=== PATIENT | male | born 1995 | race Caucasian/White ===

== ENCOUNTER 2022-12-26 18:32 | Inpatient (IN) | payer MEDICAID, SELFPAY ==
--- NOTE | ~2022-12-26 | CT_ITS ---
EXAMINATION: CT ABDOMEN AND PELVIS WITHOUT CONTRAST CLINICAL INFORMATION: Leukocytosis, right lower quadrant. COMPARISON: None available. TECHNIQUE: Multidetector volumetric imaging was performed from the superior aspect of the liver through the pubic symphysis. Sagittal and coronal reformatted images were obtained on the technologist's workstation. Lack of intravenous and oral contrast limits visceral evaluation. This CT examination was performed using dose optimization techniques as appropriate, variously including the following: *Automated exposure control *Adjustment of mA and/or kV according to patient size (this includes techniques or standardized protocols for targeted exams where dose is matched to indication/reason for exam; i.e. extremities or head) *Use of iterative reconstruction technique DLP: 385 mGy-cm FINDINGS: LUNG BASES: The visualized lung bases are unremarkable. LIVER, GALLBLADDER, AND BILIARY TREE: Unremarkable. PANCREAS: Unremarkable. SPLEEN: Unremarkable. ADRENAL GLANDS: Unremarkable. KIDNEYS AND URETERS: The kidneys are normal in size, shape, and attenuation. No hydronephrosis, hydroureter, or calculi seen. No perinephric stranding. BLADDER: Unremarkable. GASTROINTESTINAL TRACT: The stomach and small bowel unremarkable. There is dilatation of the distal appendix measuring up to 1.1 cm in greatest diameter (image 44, series 4) with mild mural thickening and mild adjacent infiltrative changes. An appendicolith is seen more proximally measuring 1.0 cm (image 33, series 4). No evidence for perforation or abscess formation. The base of the cecum and remainder of the large bowel are unremarkable. ABDOMINAL WALL: No significant hernia is appreciated. LYMPH NODES: No lymphadenopathy. VASCULAR: Unremarkable. PELVIC VISCERA: Unremarkable. OSSEOUS STRUCTURES: Transitional L5-S1 with sacralization of L5 and a rudimentary disc at L5-S1. Mild grade 1 retrolisthesis of L4 over L5. No acute/suspicious abnormality. CT/CT abdomen pelvis wo IV con IMPRESSION: 1. Evidence for mild acute appendicitis with possible obstruction from a prominent appendicolith. No evidence for perforation or abscess formation. Digital consultation is recommended.
[2022-12-26 18:59] VITALS: BP 101/72; PULSE 71; RESP 18; TEMP 36.6; O2SAT 100; BMI 23.4
--- NOTE | 2022-12-26 19:01 | ED.GENADULT ---
HPI - General Adult General Chief complaint: Nausea/Vomiting/Diarrhea Stated complaint: abd pain Time Seen by Provider: 12/26/22 22:08 Source: patient and family (Father) Mode of arrival: ambulatory Limitations: no limitations History of Present Illness HPI narrative: 27-year-old male came in for evaluation of abdominal pain, nausea, vomiting, nonbloody watery diarrhea. Patient's symptoms started since this morning after he woke up from the sleep, pain has been constant since this morning, stated that he eats pizza last night from a restaurant no other sick contacts, no recent travel, no recent use of antibiotic variant patient started with severe lower abdominal pain followed by nausea and vomiting, and nonbloody watery diarrhea. No history of intra-abdominal surgeries in the past. Related Data Previous Rx's Medication Instructions Recorded cefuroxime axetil 500 mg tablet 500 mg PO Q12H 20 days #28 tabs 12/27/22 Allergies Allergy/AdvReac Type Severity Reaction Status Date / Time No Known Allergies Allergy Unverified 04/10/20 16:33 Review of Systems Review of Systems: All other systems are reviewed and are negative Constitutional: Reports as per HPI and Reports no additional constitutional complaints Eyes: Reports as per HPI and Reports no additional eye complaints Reports system reviewed and no additional complaints, except as documented Cardiovascular: Reports as per HPI and Reports no additional cardiovascular complaints Respiratory: Reports as per HPI and Reports no additional respiratory complaints Gastrointestinal: Reports as per HPI and Reports no additional gastrointestinal complaints Genitourinary: Reports no additional female genitourinary complaints Musculoskeletal: Reports no additional musculoskeletal complaints Skin/Breast: Reports system reviewed and no additional complaints, except as docu Psychiatric: Reports no additional psychiatric complaints Endocrine: Reports no additional endocrine complaints Hematologic/Lymphatic: Reports no additional hematologic/lymphatic complaints Allergic/Immunologic: Reports no additional allergic/immunologic complaints Reports system reviewed and no additional complaints, except as documented and Reports Abnormal speech present [facility] Social History Social History Household Members: Other Household Members Other:: self Housing: House Do you presently have visiting nurse or other home services: No Alcohol intake: never Patient Tobacco Use Status: Current someday Tobacco user Tobacco use type: Cigarette Smoked in Last 30 Days: Yes Frequency of e-Cigarette/Vaping Use: once a month Patient Interested in Nicotine Replacement: No Patient Given Instructions on How to Stop Smoking: No Second Hand Smoke Exposure: No Use of substances other than those prescribed or required for medical reasons: Yes Substance Use Type: Marijuana Substance Use Frequency: Occasionally Currently Displaying Signs/Symptoms of Drug Intoxication Withdrawal: No Any prior treatment program specific to substance use: No Have you been hit, kicked, punched, or otherwise hurt by someone within the past year? If so, by whom?: No Do you feel safe in your current relationship?: No Is there a partner from a previous relationship who is making you feel unsafe now?: No Are you made to feel afraid or neglected: No Advance Directives: No Advance Directives Information Provided: No Do you have thoughts of harming others: None Do you have a plan to hurt others: No Plan Recently lost weight without trying: No How much weight loss: Not applicable Eating poorly because of decreased appetite: No Nutrition screen score: 0 Nutrition Risks: No Nutritional Risk Poor oral hygiene: No service: No Current occupational status: employed Physical Exam ED Vital Signs: Vital Signs - 24 hr 12/26/22 18:59 12/26/22 21:28 12/26/22 21:42 Temperature 97.9 F 98.0 F Pulse Rate 71 112 H 113 H Respiratory Rate 18 22 H 16 Blood Pressure 101/72 119/62 120/61 Pulse Oximetry 100 100 100 Oxygen Delivery Method Room Air Room Air Room Air 12/26/22 22:00 Temperature Pulse Rate 110 H Respiratory Rate 12 Blood Pressure 112/59 L Pulse Oximetry 98 Oxygen Delivery Method Room Air BMI result Body Mass Index 23.4 Vital signs have been reviewed as appeared to be correct. Blood pressure normal. Heart rate normal. Respiration rate normal. Temperature normal. Oxygen saturation normal. Appearance: Alert. Oriented X3. No acute distress. Head: Normal external exam. Normocephalic. Atraumatic. No Oden signs noted. No raccoon eyes noted Eyes: PERRLA. EOMI. Conjunctiva and sclera normal. Eyelids normal. ENT: TM's Normal. Pharynx normal. Uvula midline. Moist mucous membranes. No trismus noted. No drooling noted. No muffled voice noted. Neck: Normal inspection. Neck supple. FROM. No adenopathy. Thyroid Normal. No meningeal signs. No neck mass noted. CVS: Normal heart rate and rhythm. Heart sound normal. No murmurs noted. Pulses normal throughout. Respiratory: No respiratory distress. Painless inspiration. Breath sounds normal. No wheezes/rales/rhonchi noted. Chest nontender. No accessory muscle usage noted or decreased air movement noted. Abdomen: Soft well bilateral lower extremities tenderness, no rebound tenderness, no guarding. Bowel sounds normal in all 4 quadrants. No distention noted. No organomegaly noted. No visible injury noted. Back: No CVA tenderness. Full range of motion noted. Skin: Skin warm and dry. Normal skin color. Normal skin turgor. No rashes/lesions/lacerations noted. Extremities: No lower extremity edema. Extremities exhibit normal range of motion. Extremities nontender. Neuro: Oriented X 3. Cranial nerve exam: II-XII are grossly intact No motor deficit. No sensory deficit. Reflexes normal. Course Course Course Narrative: RME: 27 yold male presents to the ED for abdominal pain, nausea, vomitting, and diarrhea since yesterday. labs, SARS, and UA ordered Reevaluation(s) Reevaluation #1: Acute appendicitis case discussed with Dr. Tena will keep the patient NPO. Time: 23:29 Reevaluation #2: Patient now diagnosed with acute appendicitis and meet criteria for SIRS by tachycardia and leukocytosis, blood cultures/lactic acid were ordered, will continue IV fluid hydration and IV Zosyn. Time: 23:43 Medications Administered Discontinued Medications Generic Name Dose Route Start Last Admin Trade Name Freq PRN Reason Stop Dose Admin Docusate Sodium 200 mg 12/27/22 09:00 12/27/22 10:00 Docusate Sodium 100 Mg Capsule PO Not Given BID [facility] Famotidine 20 mg 12/26/22 22:16 12/26/22 22:56 Famotidine/Pf 20 Mg/2 Ml Vial IVPUSH 12/26/22 22:17 20 mg ONCE ONE Administration Hydromorphone HCl 0.25 mg 12/26/22 23:50 12/27/22 00:43 Hydromorphone Hcl 0.5 Mg/0.5 Ml Syringe IVPUSH 0.25 mg Q2H PRN Administration Pain, Moderate(Pain Scale 4-6) Protocol Sodium Chloride 1,000 mls @ 999 mls/hr 12/26/22 22:16 12/26/22 23:16 Ns IV 12/26/22 23:16 Infused .Q1H1M ONE Infusion Sodium Chloride 1,000 mls @ 999 mls/hr 12/26/22 23:42 12/27/22 01:44 Ns IV 12/27/22 00:42 Infused .Q1H1M ONE Infusion Piperacillin Sod/Tazobactam 50 mls @ 100 mls/hr 12/26/22 23:42 12/27/22 00:42 Sod 3.375 gm/ Sodium Chloride IV 12/27/22 00:11 Infused ONCE ONE Infusion Lactated Ringer's 1,000 mls @ 100 mls/hr 12/26/22 23:45 12/27/22 06:50 Lr IVCONT 0 mls/hr .Q10H RENALDO Infusion Acetaminophen 1,000 mg in 100 mls @ 400 mls/hr 12/26/22 23:45 12/27/22 08:47 Ofirmev IV 12/27/22 17:59 Not Given Q6H RENALDO Acetaminophen 1,000 mg in 100 mls @ 400 mls/hr 12/27/22 02:34 12/27/22 08:47 Ofirmev IV 12/27/22 02:48 Infused ONCE ONE Infusion Piperacillin Sod/Tazobactam 50 mls @ 100 mls/hr 12/27/22 06:00 12/27/22 06:50 Sod 3.375 gm/ Sodium Chloride IV 0 mls/hr Q6H RENALDO Infusion Ketorolac Tromethamine 30 mg 12/27/22 02:34 12/27/22 04:43 Ketorolac Tromethamine 30 Mg/Ml Vial IVPUSH 12/27/22 02:35 30 mg ONCE ONE Administration Morphine Sulfate 1 mg 12/26/22 22:16 12/26/22 22:56 Morphine Sulfate 2 Mg/Ml Cartridge IVPUSH 12/26/22 22:17 1 mg ONCE ONE Administration Protocol Ondansetron HCl 4 mg 12/26/22 22:16 12/26/22 22:56 Ondansetron Hcl 4 Mg/2 Ml Vial IVPUSH 12/26/22 22:17 4 mg ONCE ONE Administration Ondansetron HCl 4 mg 12/26/22 23:50 12/27/22 00:43 Ondansetron Hcl 4 Mg/2 Ml Vial IVPUSH 4 mg Q6H PRN Administration Nausea and Vomiting Medical Decision Making Differential Diagnosis Differential Diagnoses: The differential diagnosis associated with the presentation includes (Acute appendicitis, pancreatitis, colitis, diverticulitis, electrolyte abnormalities, severe anemia.) Admission/Observation Consideration of admission/observation: Escalation of care including admission/observation considered Consult Healthcare Provider Management of the patient was discussed with: [employer] Operator (Dr. Fairbanks) Lab Data MDM Lab Attestation statement: I reviewed the patient's lab results. 12/26/22 19:11 12/26/22 19:11 Labs: Lab Results 12/26/22 12/26/22 12/26/22 Range/Units 19:11 19:11 19:11 WBC 16.6 H (4.8-10.8) X10*3/uL RBC 5.35 (4.60-5.80) X10*6/uL Hgb 16.2 (14.0-18.0) g/dl Hct 46.0 (42.0-52.0) % MCV 86.0 (80.0-98.0) fL MCH 30.3 (27.0-33.0) pg MCHC 35.2 (31.0-36.0) g/dl RDW 11.9 (11.0-16.0) % Plt Count 216 (160-400) X10*3/uL MPV 10.6 (9.4-12.4) fL Immature Gran % (Auto) 0.3 (0.0-0.4) % Neut % (Auto) 90.4 H (45-73) % Lymph % (Auto) 4.1 L (20-40) % [place] % (Auto) 5.0 (2-11) % Eos % (Auto) 0.0 (0-4) % Baso % (Auto) 0.2 (0-2) % Lymph # (Auto) 0.7 L (1.2-4.9) X10*3/uL [place] # (Auto) 0.8 (0.1-1.2) X10*3/uL Eos # (Auto) 0.0 (0.0-0.4) X10*3/uL Baso # (Auto) 0.0 (0.0-0.2) X10*3/uL Abs Immat Gran (auto) 0.05 H (0.00-0.03) X10*3/uL Absolute Neuts (auto) 15.0 H (2.0-8.3) x10*3/uL Absolute Nucleated RBC 0.000 (0.0-0.012) X10*3/uL Nucleated RBC % (auto) 0.0 (0.0-0.2) /100WBC Smear Tech's Comments VERIFIED Sodium 140 (135-145) mmol/L Potassium 3.7 (3.3-5.1) mmol/L Chloride 103 (96-108) mmol/L Carbon Dioxide 23 (22-29) mmol/L Anion Gap 18 (12-20) BUN 17 H (9-16) mg/dL Creatinine 0.87 (0.5-1.4) mg/dL Estim Creat Clear Calc 120.2 Estimated GFR > 60 Random Glucose 128 H (60-115) mg/dL Calcium 10.5 H (8.4-10.2) mg/dL Total Bilirubin 1.5 H (0.0-1.0) mg/dL AST 22 (5-37) U/L ALT 42 H (0-40) U/L Alkaline Phosphatase 73 (39-117) U/L Total Protein 8.0 (6.5-8.0) g/dL Albumin 5.0 (3.5-5.0) g/dL Lipase 13 (8-78) U/L Urine Color Urine Appearance Urine pH (5.0-9.0) Ur Specific [place] (1.005-1.025) Urine Protein (Neg-Trace) mg/dL Urine Glucose (UA) (Negative) mg/dL Urine Ketones (Negative) mg/dL Urine Blood (Negative) Urine Nitrite (Negative) Ur Leukocyte Esterase (Negative) Urine RBC (0-2) /HPF Urine WBC (0-5) /HPF Ur Squamous Epith Cells (0-2) /HPF Urine Bacteria (None Seen) Hyaline Casts (0-2) /LPF Influenza Type A (PCR) NEGATIVE (Negative) Influenza Type B (PCR) NEGATIVE (Negative) RSV RNA Qual (PCR) NEGATIVE (Negative) SARS-CoV-2 RNA (RT-PCR) NEGATIVE (Negative) 12/26/22 Range/Units 19:11 WBC (4.8-10.8) X10*3/uL RBC (4.60-5.80) X10*6/uL Hgb (14.0-18.0) g/dl Hct (42.0-52.0) % MCV (80.0-98.0) fL MCH (27.0-33.0) pg MCHC (31.0-36.0) g/dl RDW (11.0-16.0) % Plt Count (160-400) X10*3/uL MPV (9.4-12.4) fL Immature Gran % (Auto) (0.0-0.4) % Neut % (Auto) (45-73) % Lymph % (Auto) (20-40) % [place] % (Auto) (2-11) % Eos % (Auto) (0-4) % Baso % (Auto) (0-2) % Lymph # (Auto) (1.2-4.9) X10*3/uL [place] # (Auto) (0.1-1.2) X10*3/uL Eos # (Auto) (0.0-0.4) X10*3/uL Baso # (Auto) (0.0-0.2) X10*3/uL Abs Immat Gran (auto) (0.00-0.03) X10*3/uL Absolute Neuts (auto) (2.0-8.3) x10*3/uL Absolute Nucleated RBC (0.0-0.012) X10*3/uL Nucleated RBC % (auto) (0.0-0.2) /100WBC Smear Tech's Comments Sodium (135-145) mmol/L Potassium (3.3-5.1) mmol/L Chloride (96-108) mmol/L Carbon Dioxide (22-29) mmol/L Anion Gap (12-20) BUN (9-16) mg/dL Creatinine (0.5-1.4) mg/dL Estim Creat Clear Calc Estimated GFR Random Glucose (60-115) mg/dL Calcium (8.4-10.2) mg/dL Total Bilirubin (0.0-1.0) mg/dL AST (5-37) U/L ALT (0-40) U/L Alkaline Phosphatase (39-117) U/L Total Protein (6.5-8.0) g/dL Albumin (3.5-5.0) g/dL Lipase (8-78) U/L Urine Color Yellow Urine Appearance Cloudy Urine pH >= 9.0 (5.0-9.0) Ur Specific [place] >= 1.030 H (1.005-1.025) Urine Protein 100 (2+) H (Neg-Trace) mg/dL Urine Glucose (UA) Negative (Negative) mg/dL Urine Ketones 15 (Negative) mg/dL Urine Blood Negative (Negative) Urine Nitrite Negative (Negative) Ur Leukocyte Esterase Negative (Negative) Urine RBC 0-2 (0-2) /HPF Urine WBC 0-5 (0-5) /HPF Ur Squamous Epith Cells 0-2 (0-2) /HPF Urine Bacteria None Seen (None Seen) Hyaline Casts 0-2 (0-2) /LPF Influenza Type A (PCR) (Negative) Influenza Type B (PCR) (Negative) RSV RNA Qual (PCR) (Negative) SARS-CoV-2 RNA (RT-PCR) (Negative) Independent Interpretation I performed an independent interpretation of an: CT Scan (abd and pelvis: Acute appendicitis) Radiology Impression Discussion of test interpretation with radiology: I have reviewed the radiologist's reading. Discharge Plan Discharge Clinical Impression: Acute appendicitis Patient Disposition: Admitted As Inpatient Interventions: Admission Worksheet (ED) Last Done: 12/27/22 03:29 Discharge Date/Time: 12/27/22 03:18
[2022-12-26 19:25] LABS: Basophils Percent Auto 0.2 % (0-2); Hemoglobin 16.2 g/dl (14.0-18.0); Imm Gran Abs Auto 0.05 X10*3/uL (0.00-0.03); Imm Gran Pct Auto 0.3 % (0.0-0.4); Lymphocytes Absolute Auto 0.7 X10*3/uL (1.2-4.9); Lymphocytes Percent Auto 4.1 % (20-40); MANUAL DIFF FLAG SCAN; Mean Corpuscular HGB Conc 35.2 g/dl (31.0-36.0); Mean Corpuscular Hemoglobin 30.3 pg (27.0-33.0); Mean Platelet Volume 10.6 fL (9.4-12.4); Monocytes Absolute Auto 0.8 X10*3/uL (0.1-1.2); Neutrophils Percent Auto 90.4 % (45-73); Platelet Count 216 X10*3/uL (160-400); Red Blood Count 5.35 X10*6/uL (4.60-5.80); Red Cell Distribution Width 11.9 % (11.0-16.0); SCAN SMEAR FLAG 1; White Blood Count 16.6 X10*3/uL (4.8-10.8)
[2022-12-26 19:26] LABS: Appearance Urine Cloudy; Color Urine Yellow; Glucose Urine UA Negative (Negative); Leukocyte Esterase Urine Negative (Negative); Nitrite Urine Negative (Negative); PH >= 9.0 (5.0-9.0); Specific Gravity - Urine >= 1.030 (1.005-1.025); UMIC TRIGGER UACC YES; Urine Blood Negative (Negative); Urine Ketones 15 mg/dL (Negative); Urine Protein 100 (2+) mg/dL (Neg-Trace)
[2022-12-26 19:29] LABS: Bacteria Urine None Seen (None Seen); Hyaline Casts Urine 0-2 /LPF (0-2); RBC Urine 0-2 /HPF (0-2); Squamous Epithelial Cell Urine 0-2 /HPF (0-2); WBC Urine 0-5 /HPF (0-5)
[2022-12-26 19:45] LABS: SLIDE REVIEW VERIFIED
[2022-12-26 19:46] LABS: Alanine Aminotransferase 42 U/L (0-40); Alkaline Phosphatase 73 U/L (39-117); Anion Gap 18 (12-20); Aspartate Amino Transferase 22 U/L (5-37); Bilirubin Total 1.5 mg/dL (0.0-1.0); Blood Urea Nitrogen 17 mg/dL (9-16); Calcium 10.5 mg/dL (8.4-10.2); Carbon Dioxide 23 mmol/L (22-29); Chloride 103 mmol/L (96-108); Creatinine Clr Calc Pharmacy 120.2; Estimated Glomerular Filt Rate > 60; Glucose Random 128 mg/dL (60-115); Lipase 13 U/L (8-78); Potassium 3.7 mmol/L (3.3-5.1); Sodium 140 mmol/L (135-145)
[2022-12-26 20:08] LABS: Influenza A PCR NEGATIVE (Negative); Influenza B PCR NEGATIVE (Negative); Resp Syncy Virus RNA Qual PCR NEGATIVE (Negative); SARS COV2 PCR INHOUSE NEGATIVE (Negative)
[2022-12-26 21:28] VITALS: BP 119/62; PULSE 112; RESP 22; O2SAT 100
[2022-12-26 21:42] VITALS: BP 120/61; PULSE 113; RESP 16; TEMP 36.7; O2SAT 100
[2022-12-26 22:00] VITALS: BP 112/59; PULSE 110; RESP 12; O2SAT 98
[2022-12-26] MEDS: Morphine Sulfate 2 MG/ML CARTRIDGE 1 MG IVPUSH (22:56)
[2022-12-26] MEDS: 0.9 % Sodium Chloride 1,000 ML 999 ML IV (22:56)
[2022-12-26] MEDS: ondansetron HCL 4 MG/2 ML VIAL IVPUSH (22:56)
[2022-12-26] MEDS: Famotidine/PF 20 MG/2 ML VIAL IVPUSH (22:56)
--- NOTE | 2022-12-26 23:46 | P.HPGS_ITS ---
History of Present Illness History of Present Illness Date of Service: 12/26/22 Chief complaint: abd pain Narrative: Frank Lopez is a 27 year old male with a day of progressive abdominal pain, nausea vomiting and diarrhea. When this persisted, he came to the ER and was noted to have significant abdominal tenderness which resulted in lab work that showed a leukocytosis to [address] that shows a large appendicolith and a large tubular appendix. The patient denies any prior history of chronic diarrhea. He denies any other health problems. 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 Review of Systems Review of Systems: Yes all other systems are reviewed and are negative Constitutional: Constitutional: Reports as per [facility] Social History Social History Alcohol intake: never Smoked in Last 30 Days: No Use of substances other than those prescribed or required for medical reasons: Yes Substance Use Type: Marijuana Advance Directives: No Advance Directives Information Provided: No Meds Allergies Allergy/AdvReac Type Severity Reaction Status Date / Time No Known Allergies Allergy Unverified 04/10/20 16:33 Active Medications: Current Medications Sodium Chloride (Ns) 1,000 mls @ 999 mls/hr IV .Q1H1M ONE Stop: 12/27/22 00:42 Piperacillin Sod/Tazobactam (Sod 3.375 gm/ Sodium Chloride) 50 mls @ 100 mls/hr IV ONCE ONE Stop: 12/27/22 00:11 Physical Exam Vital Signs: Vital Signs: Last Vital Signs Temp 98.0 F 12/26/22 21:42 Pulse 110 H 12/26/22 22:00 Resp 12 12/26/22 22:00 BP 112/59 L 12/26/22 22:00 Pulse Ox 98 12/26/22 22:00 O2 Del Method Room Air 12/26/22 22:00 BMI result Body Mass Index 23.4 The patient is non-toxic & in good spirits NC/AT, PERRLA, EOMI Mood, affect & judgment all appear appropriate Sclera anicteric conjunctiva pink and moist Oropharynx is clear with no aphthous ulcers, Mallampati class 1, mucous membranes moist Neck is supple with no masses, adenopathy or bruits Heart is regular, normal S1-S2 no rubs or murmurs Lungs are clear and equal anteriorly with no audible wheezing, rubs or dullness to percussion Abdomen is overweight with no demonstrable hernias. Right lower quadrant pain to palpation and peritoneal irritation to percussion is present. No HSM, rebound, rigidity, guarding, masses or bruits are present. Rectal exam is deferred Skin has good turgor and is free of rashes Extremities free of cyanosis clubbing edema Results Results Labs: Short CBC 12/26/22 Range/Units 19:11 WBC 16.6 H (4.8-10.8) X10*3/uL Hgb 16.2 (14.0-18.0) g/dl Hct 46.0 (42.0-52.0) % Plt Count 216 (160-400) X10*3/uL BMP 12/26/22 19:11 Sodium 140 Potassium 3.7 Chloride 103 Carbon Dioxide 23 BUN 17 H Creatinine 0.87 Calcium 10.5 H Liver Function 12/26/22 Range/Units 19:11 Total Bilirubin 1.5 H (0.0-1.0) mg/dL AST 22 (5-37) U/L ALT 42 H (0-40) U/L Alkaline Phosphatase 73 (39-117) U/L Albumin 5.0 (3.5-5.0) g/dL Urine 12/26/22 Range/Units 19:11 Urine Color Yellow Urine Appearance Cloudy Urine pH >= 9.0 (5.0-9.0) Ur Specific [place] >= 1.030 H (1.005-1.025) Urine Protein 100 (2+) H (Neg-Trace) mg/dL Urine Glucose (UA) Negative (Negative) mg/dL Abdomen CT scan report/results: report reviewed and image reviewed CT scan - pelvis: report reviewed and image reviewed Assessment and Plan (1) Acute appendicitis: Status: Acute (2) Diarrhea: Status: Acute Plan I reviewed the options of admission and medical management with IV antibiotics versus laparoscopic appendectomy in reviewed activity restrictions as well as the inherent risks of bleeding, infection, need for open surgery, the possibility of encountering unexpected pathology that may change the operative plan, the risk of negative exploration, and the possibility that another procedure could be required in the event of a complication. The patient seemed understand his options and wants to proceed with laparoscopic appendectomy, possibly open. Will admit, NPO and start Zosyn. Pain meds and analgesics. Time Spent With Patient Time: Total time managing care of this patient today ____ minutes. Quality Stroke Does the patient have a stroke diagnosis?: No VTE Prior VTE?: No VTE Risk Level:: Surgical - low VTE Device Contraindication: N/A - Device Ordered VTE Drug Contraindication: Treatment Not Indicated Procedures Date of Service Date of Service: 12/26/22
[2022-12-27] VITALS (12 sets, daily range): BP systolic 96–117; BP diastolic 44–61; PULSE 72–111; RESP 15–20; TEMP 36.6–37.4; O2SAT 95–99; BMI 23.4
[2022-12-27] MEDS: Piperacillin Sodium/Tazobactam 3.375 GM in 0.9 % Sodium Chloride 50 ML IV ×2 (00:42→06:49)
[2022-12-27] MEDS: HYDROmorphone HCl 0.5 MG/0.5 ML SYRINGE 0.25 MG IVPUSH (00:43)
[2022-12-27] MEDS: 0.9 % Sodium Chloride 1,000 ML 999 ML IV (00:43)
[2022-12-27] MEDS: ondansetron HCL 4 MG/2 ML VIAL IVPUSH (00:43)
[2022-12-27] MEDS: Lactated Ringers 1,000 ML 100 ML IVCONT (00:50)
[2022-12-27 01:08] LABS: Lactic Acid 1.5 mmol/L (0.5-2.0)
--- NOTE | 2022-12-27 02:32 | HO.ANESPROP2 ---
HPI - Anesthesia Eval Consult details Narrative: Acute appendicitis PMFSH Active Problems Active Problems: All Active Problems (Updated 12/26/22 @ 23:49 by Mahesh Fairbanks MD) Diarrhea (Acute) Acute appendicitis (Acute) Family History Family history of problems with anesthesia: No Surgical History History of Problems with Anesthesia: No Social History Social History Alcohol intake: never Patient Tobacco Use Status: Never used Tobacco Smoked in Last 30 Days: No Use of substances other than those prescribed or required for medical reasons: Yes Substance Use Type: Marijuana Advance Directives: No Advance Directives Information Provided: No Nutrition Risks: No Nutritional Risk Meds Allergies Allergy/AdvReac Type Severity Reaction Status Date / Time No Known Allergies Allergy Unverified 04/10/20 16:33 Active Medications: Current Medications Hydromorphone HCl (Hydromorphone Hcl 0.5 Mg/0.5 Ml Syringe) 0.25 mg IVPUSH Q2H PRN; Protocol PRN Reason: Pain, Moderate(Pain Scale 4-6) Last Admin: 12/27/22 00:43 Dose: 0.25 mg Lactated Ringer's (Lr) 1,000 mls @ 100 mls/hr IVCONT .Q10H RENALDO Last Admin: 12/27/22 00:50 Dose: 100 mls/hr Acetaminophen (Ofirmev) 1,000 mg in 100 mls @ 400 mls/hr IV Q6H RENALDO Stop: 12/27/22 17:59 Ondansetron HCl (Ondansetron Hcl 4 Mg/2 Ml Vial) 4 mg IVPUSH Q6H PRN PRN Reason: Nausea and Vomiting Last Admin: 12/27/22 00:43 Dose: 4 mg Exam Exam Date and Time: December 27, 2022 0232 Height,Weight and Vital Signs: Height 5 ft 7 in Weight 67.7 kg Last Vital Signs Temp 98.7 F 12/27/22 02:22 Pulse 107 H 12/27/22 02:22 Resp 19 12/27/22 02:22 BP 101/50 L 12/27/22 02:22 Pulse Ox 97 12/27/22 02:22 O2 Del Method Room Air 12/27/22 02:22 Pertinent Lab Results Pertinent Lab Results: Laboratory Tests 12/26/22 12/26/22 12/26/22 19:11 19:11 19:11 WBC 16.6 H RBC 5.35 Hgb 16.2 Hct 46.0 MCV 86.0 MCH 30.3 MCHC 35.2 RDW 11.9 Plt Count 216 MPV 10.6 Immature Gran % (Auto) 0.3 Neut % (Auto) 90.4 H Lymph % (Auto) 4.1 L [place] % (Auto) 5.0 Eos % (Auto) 0.0 Baso % (Auto) 0.2 Lymph # (Auto) 0.7 L [place] # (Auto) 0.8 Eos # (Auto) 0.0 Baso # (Auto) 0.0 Abs Immat Gran (auto) 0.05 H Absolute Neuts (auto) 15.0 H Absolute Nucleated RBC 0.000 Nucleated RBC % (auto) 0.0 Smear Tech's Comments VERIFIED Sodium 140 Potassium 3.7 Chloride 103 Carbon Dioxide 23 Anion Gap 18 BUN 17 H Creatinine 0.87 Estim Creat Clear Calc 120.2 Estimated GFR > 60 Random Glucose 128 H Lactic Acid Calcium 10.5 H Total Bilirubin 1.5 H AST 22 ALT 42 H Alkaline Phosphatase 73 Total Protein 8.0 Albumin 5.0 Lipase 13 Urine Color Urine Appearance Urine pH Ur Specific [place] Urine Protein Urine Glucose (UA) Urine Ketones Urine Blood Urine Nitrite Ur Leukocyte Esterase Urine RBC Urine WBC Ur Squamous Epith Cells Urine Bacteria Hyaline Casts Influenza Type A (PCR) NEGATIVE Influenza Type B (PCR) NEGATIVE RSV RNA Qual (PCR) NEGATIVE SARS-CoV-2 RNA (RT-PCR) NEGATIVE 12/26/22 12/27/22 19:11 00:36 WBC RBC Hgb Hct MCV MCH MCHC RDW Plt Count MPV Immature Gran % (Auto) Neut % (Auto) Lymph % (Auto) [place] % (Auto) Eos % (Auto) Baso % (Auto) Lymph # (Auto) [place] # (Auto) Eos # (Auto) Baso # (Auto) Abs Immat Gran (auto) Absolute Neuts (auto) Absolute Nucleated RBC Nucleated RBC % (auto) Smear Tech's Comments Sodium Potassium Chloride Carbon Dioxide Anion Gap BUN Creatinine Estim Creat Clear Calc Estimated GFR Random Glucose Lactic Acid 1.5 Calcium Total Bilirubin AST ALT Alkaline Phosphatase Total Protein Albumin Lipase Urine Color Yellow Urine Appearance Cloudy Urine pH >= 9.0 Ur Specific [place] >= 1.030 H Urine Protein 100 (2+) H Urine Glucose (UA) Negative Urine Ketones 15 Urine Blood Negative Urine Nitrite Negative Ur Leukocyte Esterase Negative Urine RBC 0-2 Urine WBC 0-5 Ur Squamous Epith Cells 0-2 Urine Bacteria None Seen Hyaline Casts 0-2 Influenza Type A (PCR) Influenza Type B (PCR) RSV RNA Qual (PCR) SARS-CoV-2 RNA (RT-PCR) Airway Mallampati Class: II TM Dist: >3cm Neck ROM: Full Loose/Missing/Broken Teeth: No Heart: RRR Lungs: cta Assessment and Plan Assessment Anesthesia Assessment: Anesthesia Plan Discussed and Chart Reviewed Final Anesthetic Review Family History of Problems with Anesthesia: No History of Problems with Anesthesia: No NPO: Yes ASA Class: I and Emergency Final Preanesthetic Review: No Changes in Pt Med Stat, Meds/Allgs Chart Reviewed, Consent Obtained/Reviewed and Anes Risks/Benef Reviewed Patient Risk: Low Procedure Risk: Intermediate Anesthetic Plan Anesthetic Plan: GA Disposition: Standard PACU
--- NOTE | 2022-12-27 02:41 | P.OP_ITS ---
Operative Note Operative Note Date of Service: 12/27/22 Narrative: PREOP DIAGNOSIS: [ACUTE APPENDICITIS, DIARRHEA] POSTOP DIAGNOSIS: [Same, suppurative acute appendicitis] PROCEDURE: [Laparoscopic appendectomy] SURGEON: MICHAEL MARIE MD ASSIST: [Kat Hart RN] ANESTHESIA: [GET, Marciane, 0.5% with epi] ESTIMATED BLOOD LOSS: [3CC] SPECIMEN: [Acutely inflamed, suppurative appendix] INTRAOPERATIVE FINDINGS: [Suppurative acute appendicitis with no overt perforation] INDICATIONS: [The patient is a 27-year-old gentleman who had abrupt onset of abdominal pain associated with diarrhea. He presented with a leukocytosis and had a CT that demonstrated acute appendicitis. Options including medical management or operative intervention with a laparoscopic, possible open appendectomy were reviewed as well as activity restrictions. The inherent risks of bleeding, infection, need for open operation, the possible need to change the operative plan if unexpected pathology is encountered pre or postoperatively, the possible need to see a polisher and buffer if his diarrhea persists postoperatively or if inflammatory bowel disease is encountered, the risk of another procedure in the event of a complication such as bleeding or infection was also discussed. Patient seemed understand his options and wanted to proceed. An director biomedical engineering was offered and declined.] PROCEDURE: [The patient was identified in the preoperative holding area and again in the operating room. An appropriate time-out was performed. The patient had voided bladder public information officer, received subcu heparin and antibiotics per protocol. Sequential compression stockings were placed. The patient was induced in general endotracheal anesthesia administered with excellent effect. The abdomen was widely prepped and draped in the usual manner for surgery. Preemptive local was used at all trocar insertion sites. The abdomen was accessed using a Veress needle. A transverse supraumbilical incision was made, the Veress needle inserted without incident, an appropriate drop test performed and a pneumoperitoneum of 15 mmHg was obtained using carbon dioxide. Next, the Veress needle was withdrawn and the abdomen was accessed through the incision with a 30 degree/5 mm laparoscoped over Optiview trocar technique without incident. In examining the bowel & mesentary deep to the Veress needle, no evidence of injury was present. The remaining trocars were placed under direct laparoscopic vision with preemptive analgesia. The patient was then positioned in Trendelenburg, banked left. The appendix was identified and tracked down to the cecum. A window was made in the mesoappendix and the mesoappendix carefully dissected using the 5 mm LigaSure [place] tip. An Endo-JUDAH stapler, purple load, was placed across the appendiceal base on the cecum the and fired with good hemostasis and closure. The specimen was placed in an Endo-Catch bag and delivered through the 12 mm port in the left lower quadrant. Operative field was irrigated and inspected for hemostasis which was good. Patient was returned to neutral position, the abdomen deflated and the trocars removed. 12 mm fascia was closed with 0- Polysorb and skin closed with 4-0 Monocryl subcuticular sutures. The abdomen was washed and dried, Mastisol and Steri-Strips applied followed by Band-Aids. Patient tolerated the procedure well and was sent to the recovery in stable condition. All sponge instrument counts were correct. At the patient's request, I called his father Gaurav at [phone] to review the operation and postoperative plan. His questions seemed to be satisfactorily answered.]
--- NOTE | 2022-12-27 03:07 | PC.NURSE ---
Handoff report given to Ramin in OR
--- NOTE | 2022-12-27 04:05 | P.DS_ITS ---
DS: Providers Provider Date of Service: 12/27/22 Date of admission: 12/26/22 23:51 Primary care physician: None Physician Consults: 12/26/22 23:33 Consult to General Surgery Stat Consulting Provider: [facility] Reason for consultation: Acute appendicitis Has provider been notified: Yes DS: Diagnosis Discharge Diagnosis (1) Acute appendicitis: Status: Acute (2) Diarrhea: Status: Acute DS: Summary Hospital Course Hospital Course: See H&P for full details. Briefly, this 27-year-old gentleman presented with vague abdominal pain localizing to his right lower quadrant that was accompanied by significant, multiple episodes of diarrhea, nausea and vomiting. He was noted to have a leukocytosis and a CT consistent with an appendicolith and acute appendicitis. He underwent laparoscopic appendectomy 12/27/22 and later in the morning was tolerating clear liquids and a regular diet per nursing staff. He was discharged home in improved condition. Activity restrictions were discussed at length and his questions answered. Follow-up in 1 week, sooner if there is abdominal pain, return of fevers vomiting or diarrhea. Time spent discussing smoking cessation with patient: 3 to 10 minutes Time Spent with Patient Time attestation: Total time managing care of this patient today ____ minutes. Discharge coordination time: Less than 30 minutes Quality: Safe Use of Opioids Does Pt have an Active Cancer Diagnosis on the Problem List?: No Quality: Stroke Does the patient have a stroke diagnosis?: No Physical Exam Vital Signs: Vital Signs: Last Vital Signs Temp 98.7 F 12/27/22 02:22 Pulse 107 H 12/27/22 02:22 Resp 19 12/27/22 02:22 BP 101/50 L 12/27/22 02:22 Pulse Ox 97 12/27/22 02:22 O2 Del Method Room Air 12/27/22 02:22 BMI result Body Mass Index 23.4 DS: Data Data Completed and Pending Pending studies at discharge: Pending at discharge 12/27/22 03:51 Surgical [PTH] Routine Labs on day of discharge: Laboratory Results - last 24 hr 12/26/22 12/26/22 12/26/22 19:11 19:11 19:11 WBC 16.6 H RBC 5.35 Hgb 16.2 Hct 46.0 MCV 86.0 MCH 30.3 MCHC 35.2 RDW 11.9 Plt Count 216 MPV 10.6 Immature Gran % (Auto) 0.3 Neut % (Auto) 90.4 H Lymph % (Auto) 4.1 L [place] % (Auto) 5.0 Eos % (Auto) 0.0 Baso % (Auto) 0.2 Lymph # (Auto) 0.7 L [place] # (Auto) 0.8 Eos # (Auto) 0.0 Baso # (Auto) 0.0 Abs Immat Gran (auto) 0.05 H Absolute Neuts (auto) 15.0 H Absolute Nucleated RBC 0.000 Nucleated RBC % (auto) 0.0 Smear Tech's Comments VERIFIED Sodium 140 Potassium 3.7 Chloride 103 Carbon Dioxide 23 Anion Gap 18 BUN 17 H Creatinine 0.87 Estim Creat Clear Calc 120.2 Estimated GFR > 60 Random Glucose 128 H Lactic Acid Calcium 10.5 H Total Bilirubin 1.5 H AST 22 ALT 42 H Alkaline Phosphatase 73 Total Protein 8.0 Albumin 5.0 Lipase 13 Urine Color Urine Appearance Urine pH Ur Specific [place] Urine Protein Urine Glucose (UA) Urine Ketones Urine Blood Urine Nitrite Ur Leukocyte Esterase Urine RBC Urine WBC Ur Squamous Epith Cells Urine Bacteria Hyaline Casts Influenza Type A (PCR) NEGATIVE Influenza Type B (PCR) NEGATIVE RSV RNA Qual (PCR) NEGATIVE SARS-CoV-2 RNA (RT-PCR) NEGATIVE 12/26/22 12/27/22 19:11 00:36 WBC RBC Hgb Hct MCV MCH MCHC RDW Plt Count MPV Immature Gran % (Auto) Neut % (Auto) Lymph % (Auto) [place] % (Auto) Eos % (Auto) Baso % (Auto) Lymph # (Auto) [place] # (Auto) Eos # (Auto) Baso # (Auto) Abs Immat Gran (auto) Absolute Neuts (auto) Absolute Nucleated RBC Nucleated RBC % (auto) Smear Tech's Comments Sodium Potassium Chloride Carbon Dioxide Anion Gap BUN Creatinine Estim Creat Clear Calc Estimated GFR Random Glucose Lactic Acid 1.5 Calcium Total Bilirubin AST ALT Alkaline Phosphatase Total Protein Albumin Lipase Urine Color Yellow Urine Appearance Cloudy Urine pH >= 9.0 Ur Specific [place] >= 1.030 H Urine Protein 100 (2+) H Urine Glucose (UA) Negative Urine Ketones 15 Urine Blood Negative Urine Nitrite Negative Ur Leukocyte Esterase Negative Urine RBC 0-2 Urine WBC 0-5 Ur Squamous Epith Cells 0-2 Urine Bacteria None Seen Hyaline Casts 0-2 Influenza Type A (PCR) Influenza Type B (PCR) RSV RNA Qual (PCR) SARS-CoV-2 RNA (RT-PCR) Discharge Plan Discharge Anticipated Discharge Date/Time: 12/27/22 12:04 Patient Disposition: Home, Self-Care Discharge Diagnosis: Acute appendicitis Referrals: Physician,None [Primary Care Provider] - 1 Week Mahesh Fairbanks MD [Physician] - 1 Week Discharge Medications: No Action No Known Home Meds Diet: Advance to usual diet Activity on Discharge: No heavy lifting Stand Alone Forms: Patient Portal Discharge page Activity Restrictions/Additional Instructions: You had a laparoscopic appendectomy performed by Dr. Fairbanks. It is normal to feel some minor abdominal discomfort due to the gas from the operation, however if you develop severe pain in your abdomen or chest, fevers over 100F, vomiting and are unable to keep liquids down, you should contact Dr. Fairbanks or report to [facility] nearest emergency department. If your incisions become red, swollen and tender, draining pus or have problems, please contact Dr. Fairbanks report to the nearest emergency department. If you have bandages on your incisions, leave them in place for 48 hours, then remove them. You can shower but not soak in a tub after removing the bandages. If there are paper tapes known as butterflies/Steri-Strips, leave them fall off on their own in 1-2 weeks. You do not need to put another bandage on your incisions unless your clothing rubs and irritates your incisions. You can shower after you removed your bandages in 48 hours, but do not soak in a tub, go in a pool, or go swimming in a [place]eller pond or ocean. Please let the paper tapes to dry after getting them wet. You do not need to replace a bandage on lesser clothing irritates the incision. You may find that pants with an elastic waist like gym cloths or suspenders are more comfortable than pants requiring a belt until your incisions completely heal. Because of the operation, you should not lift more than 20 lb for the next 4 weeks. Any strenuous activity such as lifting more than 20 lb, digging, yoga, any athletic activity, like running, soccer, or other strenuous activity, lifting heavy bags/groceries, swimming, martial arts, or other strenuous athletic activities can cause hernias. If you have any questions regarding a specific activity, please ask Dr. Fairbanks. Avoiding strenuous activities will minimize the risk of incisional hernias. At your 1 week post-op office visit, Dr. Fairbanks will discuss returning to work on light duty with you. Since you can perform light duty, you are not disabled, but your employer may not allow you to return until you have no restrictions; it is up to you to discuss this issue, as we cannot disclose personal information. Please bring any paperwork to that follow-up appointment from your employer. Please note that you are not disabled and need to discuss your work restrictions for medical reasons with your employer. If you do not have a follow-up post-op visit, call [phone] to schedule one, or call with questions. If you were prescribed an antibiotic, continue taking the medication as prescribed. The anesthesia from the operation and pain medicine will cause constipation. You can purchase [id number] stool softener known as Colace/docusate, 100 mg and take 2 tablets in the morning with breakfast and 2 tablets in the evening after dinner to minimize this problem. Even if you are not taking narcotics, the anesthesia can cause constipation. Unless you have a medical reason, you should take [id number] Tylenol/acetaminophen, 2 tablets with [id number] ibuprofen, 2 tablets, every 6 hours to help with pain. Add the narcotic pain medicine if you are still having pain. Ice packs are also allowed to minimize pain and swelling. You should eat a high-protein, high-fiber, low-fat diet to optimize healing. Please resume any preoperative medications unless otherwise directed by Dr. Fairbanks. Please contact your primary care provider for a follow-up appointment in 2 weeks. Care Plan Goals: Allow adequate postoperative healing Health Concerns: Allow adequate postoperative healing Plan of Treatment: Allow adequate postoperative healing Assessment: Acute appendicitis, status post laparoscopic appendectomy
[2022-12-27] MEDS: Acetaminophen 1,000 MG/100 ML PIGGYBACK 400 MG IV (04:40)
[2022-12-27] MEDS: Ketorolac Tromethamine 30 MG/ML VIAL IVPUSH (04:43)
--- NOTE | 2022-12-27 07:42 | PM.PNGS ---
Subjective Subjective Date of Service: 12/27/22 Patient reports: feels better Interval history: Seen in 467 and notes that the pain he presented to the hospital having has completely resolved since surgery. He notes some minor in abdominal pain but overall that he is better. He denies any bloating, chest pain, difficulty breathing, shortness of breath or nausea or vomiting. Physical Exam Vital Signs: Vital Signs: Last Vital Signs Temp 98.4 F 12/27/22 07:22 Pulse 88 12/27/22 07:22 Resp 20 12/27/22 07:22 BP 106/57 L 12/27/22 07:22 Pulse Ox 98 12/27/22 07:22 O2 Del Method Room Air 12/27/22 07:22 O2 Flow Rate 5 12/27/22 04:07 BMI result Body Mass Index 23.4 On exam he is nontoxic and in good spirits He is in no acute respiratory distress Abdominal dressings are clean, dry and intact Appropriate incisional tenderness is present Objective Data Active Medications Acetaminophen (Acetaminophen 325 Mg Tablet) 975 mg PO Q6H PRN PRN Reason: Pain, Mild (Pain Scale 1-3) Docusate Sodium (Docusate Sodium 100 Mg Capsule) 200 mg PO BID RENALDO Fentanyl (Fentanyl Citrate/Pf 100 Mcg/2 Ml Vial) 50 mcg IVPUSH Q5M PRN; Protocol PRN Reason: Pain, Severe (Pain Scale 7-10) Hydromorphone HCl (Hydromorphone Hcl 0.5 Mg/0.5 Ml Syringe) 0.25 mg IVPUSH Q2H PRN; Protocol PRN Reason: Pain, Moderate(Pain Scale 4-6) Last Admin: 12/27/22 00:43 Dose: 0.25 mg Documented By: VIDAL Hydromorphone HCl (Hydromorphone Hcl 0.5 Mg/0.5 Ml Syringe) 0.5 mg IVPUSH Q5M PRN; Protocol PRN Reason: Pain, Severe (Pain Scale 7-10) Lactated Ringer's (Lr) 1,000 mls @ 100 mls/hr IVCONT .Q10H [facility] Last Infusion: 12/27/22 06:50 Dose: 0 mls/hr Documented By: MELLISA Acetaminophen (Ofirmev) 1,000 mg in 100 mls @ 400 mls/hr IV Q6H [facility] Stop: 12/27/22 17:59 Promethazine HCl 12.5 mg/ (Sodium Chloride) 50.5 mls @ 202 mls/hr IV ONCE PRN PRN Reason: Nausea and Vomiting Piperacillin Sod/Tazobactam (Sod 3.375 gm/ Sodium Chloride) 50 mls @ 100 mls/hr IV Q6H [facility] Last Infusion: 12/27/22 06:50 Dose: 0 mls/hr Documented By: MELLISA Ibuprofen (Ibuprofen 400 Mg Tablet) 400 mg PO Q6H PRN PRN Reason: Pain, Mild (Pain Scale 1-3) Ondansetron HCl (Ondansetron Hcl 4 Mg/2 Ml Vial) 4 mg IVPUSH Q6H PRN PRN Reason: Nausea and Vomiting Last Admin: 12/27/22 00:43 Dose: 4 mg Documented By: VIDAL Oxycodone HCl (Oxycodone Hcl Immed Release 5 Mg Tablet) 5 mg PO ONCE PRN PRN Reason: Pain, Severe (Pain Scale 7-10) Oxycodone HCl (Oxycodone Hcl Immed Release 5 Mg Tablet) 5 mg PO Q4H PRN PRN Reason: Pain, Moderate(Pain Scale 4-6) Labs 12/26/22 19:11 12/26/22 19:11 Labs: Laboratory Results - last 24 hr 12/26/22 12/26/22 12/26/22 19:11 19:11 19:11 MCV 86.0 MCH 30.3 MCHC 35.2 RDW 11.9 Plt Count 216 MPV 10.6 Immature Gran % (Auto) 0.3 Neut % (Auto) 90.4 H Lymph % (Auto) 4.1 L [place] % (Auto) 5.0 Eos % (Auto) 0.0 Baso % (Auto) 0.2 Lymph # (Auto) 0.7 L [place] # (Auto) 0.8 Eos # (Auto) 0.0 Baso # (Auto) 0.0 Abs Immat Gran (auto) 0.05 H Absolute Neuts (auto) 15.0 H Absolute Nucleated RBC 0.000 Nucleated RBC % (auto) 0.0 Smear Tech's Comments VERIFIED Anion Gap 18 Estim Creat Clear Calc 120.2 Estimated GFR > 60 Random Glucose 128 H Lactic Acid Calcium 10.5 H Total Bilirubin 1.5 H AST 22 ALT 42 H Alkaline Phosphatase 73 Total Protein 8.0 Albumin 5.0 Lipase 13 Urine Color Urine Appearance Urine pH Ur Specific [place] Urine Protein Urine Glucose (UA) Urine Ketones Urine Blood Urine Nitrite Ur Leukocyte Esterase Urine RBC Urine WBC Ur Squamous Epith Cells Urine Bacteria Hyaline Casts Influenza Type A (PCR) NEGATIVE Influenza Type B (PCR) NEGATIVE RSV RNA Qual (PCR) NEGATIVE SARS-CoV-2 RNA (RT-PCR) NEGATIVE 12/26/22 12/27/22 19:11 00:36 MCV MCH MCHC RDW Plt Count MPV Immature Gran % (Auto) Neut % (Auto) Lymph % (Auto) [place] % (Auto) Eos % (Auto) Baso % (Auto) Lymph # (Auto) [place] # (Auto) Eos # (Auto) Baso # (Auto) Abs Immat Gran (auto) Absolute Neuts (auto) Absolute Nucleated RBC Nucleated RBC % (auto) Smear Tech's Comments Anion Gap Estim Creat Clear Calc Estimated GFR Random Glucose Lactic Acid 1.5 Calcium Total Bilirubin AST ALT Alkaline Phosphatase Total Protein Albumin Lipase Urine Color Yellow Urine Appearance Cloudy Urine pH >= 9.0 Ur Specific [place] >= 1.030 H Urine Protein 100 (2+) H Urine Glucose (UA) Negative Urine Ketones 15 Urine Blood Negative Urine Nitrite Negative Ur Leukocyte Esterase Negative Urine RBC 0-2 Urine WBC 0-5 Ur Squamous Epith Cells 0-2 Urine Bacteria None Seen Hyaline Casts 0-2 Influenza Type A (PCR) Influenza Type B (PCR) RSV RNA Qual (PCR) SARS-CoV-2 RNA (RT-PCR) Morning labs for 12/27/2022 are pending Procedures Date of Service Date of Service: 12/27/22 Progress Note: A&P Assessment and plan (1) Acute appendicitis: Status: Acute (2) Diarrhea: Status: Acute Plan Advanced diet Instructions regarding pain management, bowel regime and activities restrictions and work were discussed and apparently understood. Will assess for discharge after breakfast. Time Spent With Patient Time: Total time managing care of this patient today ____ minutes. Quality Stroke Does the patient have a stroke diagnosis?: No VTE Prior VTE?: No VTE Risk Level:: Surgical - low VTE Device Contraindication: N/A - Device Ordered VTE Drug Contraindication: Treatment Not Indicated
--- NOTE | 2022-12-27 08:40 | PHA.MEDREC ---
Pharmacy Consult ? Medication Reconciliation Pharmacy has completed the medication reconciliation. Spoke with patient and he does not take any medications at home.
--- NOTE | 2022-12-27 09:00 | PHA.MEDREC ---
Pharmacy Consult ? Medication Reconciliation Pharmacy has completed the medication reconciliation. Pt takes no medications at home
--- NOTE | 2022-12-27 09:21 | MHC.CM.PN ---
[facility] IMM 12/27/22. Pt admitted with dx appendicitis. Pt from home, independent/self-care, no previous services/DME. D/C plan to return home when medically cleared, self-care. Pts parents will transport. No HCP, education provided, pt politely declined at this time. No PCP, list of local PCP's given to pt. Melissa joshuax: x 2 [email or web address]
== END 2022-12-27 12:22 | disposition home or self-care (01) | DRG 234 ==
LOC: HO.ED 23:29 → HO.EDOVER 23:57 → HO.IMC 12-27 04:53
PROVIDERS: Physician Assistant; Admitting Provider Surgery; Emergency Provider Emergency Medicine; Visit Provider Surgery
PROC: 0DTJ4ZZ Resection of Appendix, Percutaneous Endoscopic Approach (ICD-10-PCS; CPT 44970; principal; 2022-12-27 03:00)
DX: K35.80 Unspecified acute appendicitis (principal); Z20.822 Contact with and (suspected) exposure to COVID-19
CPT/HCPCS: 44970; 0241U; 36415; 74176; 80053; 81001; 83605; 83690; 85025; 87040; 87077; 87186; 87205; 88304; 99285; J0131; J0330; J1100; J1170; J1885; J2250; J2270; J2405; J2543; J3010

== ENCOUNTER → 2023-01-04 08:46 | Outpatient (BNVA) | payer MEDICAID, SELFPAY | PROVIDERS: Visit Provider Surgery | DX: K35.890 Other acute appendicitis without perforation or gangrene (principal); R78.81 Bacteremia; Z90.49 Acquired absence of other specified parts of digestive tract | CPT/HCPCS: 99212 ==